=== PATIENT | female | born 1945 | race African-American/Black ===

== ENCOUNTER → 2020-02-25 | Outpatient (CLI) | payer OTHER | LOC: CAT 10:24 | PROVIDERS: ATTEND Neuromusculoskeletal Medicine & OMM | DX: R41.3 Other amnesia (principal) ==

== ENCOUNTER → 2020-11-19 | Outpatient (CLI) | payer OTHER | LOC: ULTRA 10:45 | PROVIDERS: ATTEND Neuromusculoskeletal Medicine & OMM | DX: M79.605 Pain in left leg (principal); M79.89 Other specified soft tissue disorders ==